=== PATIENT | female | born 1935 | race Caucasian/White ===

== ENCOUNTER → 2017-01-22 | Outpatient (CLI) | payer MEDICARE, BC ==
[~2017-01-22] MED LIST: AGGRENOX PO; ALDACTONE25 MG PO; ALDACTONE50 M1 PO; AMLODIPINE BESY10 MG PO; ASPIRIN (CHILDR81 MG; ASPIRIN LO-DOSE81 MG PO; ASPIRIN325 MG PO; COLACE100 MG PO; FISH OIL1000 MG PO; GLUCOPHAGE1000 MG PO; GLUCOPHAGE500 MG PO; KLOR-CON 1010 MEQ PO; LIPITOR40 MG PO; LOPRESSOR100 M1 PO; LOPRESSOR12.5 MG/0. PO; LOPRESSOR50 M1 PO; MAGOX 400400 MG PO; MILK OF MA400 MG/5 M PO; NORVASC10 MG PO; OSCAL500 MG PO; PLAVIX75 MG PO; PRINIVIL OR ZES10 MG PO; PRINIVIL20 MG PO; THERAGRAN-M1 TAB PO; TYLENOL325 MG PO; XALATAN2.5 ML OPHTH
--- NOTE | ~2017-01-22 | PUL ---
PATIENT'S NAME: JAMES CONTRERAS [facility] AGE: 82 Y [address] ROOM: [place] [id number] LOCATION: [facility] ADMIT DATE: 01/22/2017 Pulmonary DISCHARGE DATE: FAMILY PHYSICIAN: Briana Rodrigez MD ATTENDING PHYSICIAN: Briana Rodrigez NAME OF PROCEDURE: Sleep study PROCEDURE DATE: 01/22/17 TECH: PRATIMA Centeno TEST #: [facility]# [id number] TECHNICAL PARAMETERS: The patient was studied using International 10/20 measuring system. While the patient was studied, there was continuous monitoring of EEG (8 leads), EOG (2 leads), EKG (3 leads), submental EMG (3 leads), tibial (4 leads), respiratory inductive plethysmography (RIP) for thoracic and abdominal effort, oral and nasal airflow with a thermocouple and pressure transducer, and oximetry. The emissions testing technician also performed visual and auditory observations noting things like body position, patient's status, breath sounds, artifact, snoring level and patient comments. Continuous sound was monitored using a 2-way speaker system and video monitoring was performed using an infrared camera. Review of the entire study was performed epoch by epoch utilizing a single epoch and multiple epoch capability sleep system. MEDICAL HISTORY: The patient is an 82-year-old woman with daytime sleepiness and snoring. SLEEP STAGE SUMMARY: The patient was studied for 452 minutes of which she slept 111 minutes. She fell asleep in 98 minutes and slept for 25% of the night which is markedly decreased. Sleep architecture revealed a decline in REM sleep. RESPIRATORY SUMMARY: There were 13 apneas and 59 hypopneas for an apnea/hypopnea index severely elevated at 39 events per hour. The events were a mixture of both obstructive and central apneas. EKG SUMMARY: Average heart rate 62 beats per minute. LIMB MOVEMENT SUMMARY: No clinically relevant periodic limb movements were noted. SUMMARY: Complex sleep apnea predominantly obstructive but there were some central events. PATIENT'S NAME: JAMES COTNRERAS [facility] AGE: 82 Y [address] ROOM: [place] [address] LOCATION: [facility] ADMIT DATE: 01/22/2017 Pulmonary DISCHARGE DATE: FAMILY PHYSICIAN: Briana Rodrigez MD ATTENDING PHYSICIAN: Briana Rodrigez PLAN: Suggest a repeat study for initiation and titration of CPAP/BiPAP/ASV ventilation. The patient will receive results from the ordering provider. MD BRITTNEE HARPER/ /[id number] dtt: 01/26/17 0949 , Freddie Smith. dtd: 01/25/17 1501
== END | disposition disaster alternative care site (69) ==
LOC: GSLP 01-15 21:00
DX: G47.33 Obstructive sleep apnea (adult) (pediatric) (principal); G47.36 Sleep related hypoventilation in conditions classified elsewhere; G47.19 Other hypersomnia; R53.83 Other fatigue